=== PATIENT | female | born 2000 | race Two or more races ===

== ENCOUNTER 2021-02-26 01:46 | Outpatient (CLI) | payer OTHER | END 2021-02-26 15:00 | disposition home or self-care (01) | LOC: LAB 01:46 | DX: Z20.818 Contact with and (suspected) exposure to other bacterial communicable diseases (principal); Z20.828 Contact with and (suspected) exposure to other viral communicable diseases ==

== ENCOUNTER 2024-10-02 19:04 | Emergency (ER) | payer OTHER ==
[~2024-10-02] VITALS: Ht 162.6 cm; Wt 64.4 kg
[2024-10-02] MEDS ORDERED: PRENATE ELITE1 EAC2 PO (20:04)
[2024-10-02 21:01] LABS: BASO % 0.5 % (0.1-1.2); EOS # 0.19 (0.04-0.54); EOS % 2.2 % (0.7-7.0); HEMATOCRIT 35.9 % (34.1-44.9); HEMOGLOBIN 12.7 g/dL (11.2-15.7); LYMPH # 2.41 (1.18-3.74); LYMPH % 28.1 % (19.3-53.1); MEAN CORPUSCULAR HEMOGLOBIN 31.1 pg (25.6-32.2); MONO # 0.68 (0.24-0.82); MONO % 7.9 % (4.7-12.5); NEUT # 5.24 (1.56-6.13); NEUT % 61.2 % (34.0-71.1); PLATELET COUNT 179 K/uL (163-369); RED BLOOD COUNT 4.08 M/uL (3.93-5.22); RED CELL DISTRIBUTION WIDTH 11.7 % (11.6-14.4)
[2024-10-02 21:40] LABS: PH,URINE 5.5 (5.0-8.0); URINE APPEARANCE Cloudy; URINE BILIRRUBIN Negative (NEGATIVE); URINE BLOOD Trace; URINE COLOR Yellow; URINE GLUCOSE Negative (NEGATIVE); URINE KETONE Trace (NEGATIVE); URINE LEUKOCYTE Moderate; URINE NITRATE Negative; URINE PROTEIN Negative (NEGATIVE); URINE UROBILINOGEN 0.2 E.U./dl
[2024-10-02 21:41] LABS: URINE BACTERIA 1954.4 uL (0.0-1933); URINE EPITHELIAL CELLS 66.4 uL (0.0-38.8); URINE RBC 7.3 uL (0.0-20.8); URINE WBC 249.8 uL (0.0-23.2)
[2024-10-02 22:04] LABS: URINE CAST 0.73 uL (0.0-1.40); URINE CRYSTALS NEGATIVE /HPF; URINE MUCUS SCANT; URINE YEAST NEGATIVE /hpf
[2024-10-02] MEDS ORDERED: CEPHALEXIN500 MG PO (22:44)
== END 2024-10-02 22:51 | disposition home or self-care (01) ==
LOC: ER 19:30
PROVIDERS: General Practice
DX: Z34.90 Encounter for supervision of normal pregnancy, unspecified, unspecified trimester (principal); Z3A.01 Less than 8 weeks gestation of pregnancy; N39.0 Urinary tract infection, site not specified; R10.2 Pelvic and perineal pain

== ENCOUNTER 2024-11-04 10:17 | Emergency (ER) | payer OTHER ==
[~2024-11-04] VITALS: Ht 160 cm; Wt 65.3 kg
[~2024-11-04 10:17] MED LIST: CEPHALEXIN500 MG PO; PRENATE ELITE1 EAC2 PO
[2024-11-04] MEDS ORDERED: METOCLOPRAMIDE HCL 5 MG/ML VIAL IM STA (11:23)
[2024-11-04] MEDS ORDERED: 0.9 % SODIUM CHLORIDE 1,000 ML IV STA (11:24)
[2024-11-04] MEDS ORDERED: FAMOtidine 10 MG/ML (4ML VIAL) IV PUSH STA (11:25)
[2024-11-04 12:30] LABS: BASO % 0.1 % (0.1-1.2); EOS # 0.00 (0.04-0.54); EOS % 0.0 % (0.7-7.0); LYMPH # 0.43 (1.18-3.74); LYMPH % 4.1 % (19.3-53.1); MEAN PLATELET VOLUME 11.30 fl (9.4-12.4); MONO # 0.25 (0.24-0.82); MONO % 2.4 % (4.7-12.5); NEUT # 9.73 (1.56-6.13); NEUT % 93.1 % (34.0-71.1); RED CELL DISTRIBUTION WIDTH 11.6 % (11.6-14.4)
[2024-11-04 12:57] LABS: BUN CREA RATIO 20.0 (7.0-25.0); CREATININE SERUM 0.59 mg/dL (0.55-1.02); GFR 123.21; GLUCOSE FASTING 83.0 mg/dL (65-100); OSMOLALITY SERUM 275.0 MOSM/KG (275-295)
== END 2024-11-04 16:15 | disposition home or self-care (01) ==
LOC: ER 10:31
DX: O21.0 Mild hyperemesis gravidarum (principal); Z3A.10 10 weeks gestation of pregnancy

== ENCOUNTER 2024-12-01 13:52 | Outpatient (CLI) | payer OTHER | END 2024-12-01 13:57 | disposition home or self-care (01) | LOC: PRENATAL 13:52 | PROVIDERS: ATTEND Obstetrics & Gynecology Maternal & Fetal Medicine | DX: O36.80X0 Pregnancy with inconclusive fetal viability, not applicable or unspecified (principal); Z36.82 Encounter for antenatal screening for nuchal translucency; Z14.8 Genetic carrier of other disease; Z3A.14 14 weeks gestation of pregnancy ==

== ENCOUNTER 2025-01-15 08:39 | Outpatient (CLI) | payer OTHER | END 2025-01-15 08:41 | disposition home or self-care (01) | LOC: PRENATAL 08:39 | PROVIDERS: ATTEND Obstetrics & Gynecology Maternal & Fetal Medicine | DX: O44.00 Complete placenta previa NOS or without hemorrhage, unspecified trimester (principal); Z3A.20 20 weeks gestation of pregnancy ==

== ENCOUNTER 2025-04-12 15:01 | Outpatient (CLI) | payer OTHER | END 2025-04-12 15:02 | disposition home or self-care (01) | LOC: PRENATAL 15:01 | PROVIDERS: ATTEND Obstetrics & Gynecology Maternal & Fetal Medicine | DX: O26.843 Uterine size-date discrepancy, third trimester (principal); O36.8130 Decreased fetal movements, third trimester, not applicable or unspecified; Z3A.33 33 weeks gestation of pregnancy ==